=== PATIENT | male | born 1990 | race Caucasian/White ===

== ENCOUNTER 2024-10-08 20:37 | Emergency (ER) | payer SELFPAY | END 2024-10-08 21:58 | LOC: NAV ERS 20:37 | DX: S09.90XA Unspecified injury of head, initial encounter (principal); S80.819A Abrasion, unspecified lower leg, initial encounter; J01.90 Acute sinusitis, unspecified; F10.129 Alcohol abuse with intoxication, unspecified; Y90.9 Presence of alcohol in blood, level not specified; X58.XXXA Exposure to other specified factors, initial encounter | CPT/HCPCS: 70450; 72125 ==